=== PATIENT | male | born 1995 | race Caucasian/White ===

== ENCOUNTER 2023-09-07 18:16 | Emergency (ER) | payer OTHER, SELFPAY ==
[2023-09-07 18:18] VITALS: BP 149/85
[2023-09-07 19:24] VITALS: BMI 23.9
[2023-09-07 19:25] VITALS: BP 116/72
--- NOTE | 2023-09-07 21:00 | ED.GENMED ---
History of Present Illness
General
Chief Complaint: Withdrawal Symptoms
Source: patient
Exam Limitations: none
Time Seen by Provider: 09/07/23 19:10
Nursing documentation reviewed up to this point in time: agreed with
Travel History
Have you had any contact with someone who has COVID-19?: No
Do you have any symptoms of coronavirus? Fever > 100 degrees, chills, cough, shortness of breath, sore throat, loss of taste or smell, muscle aches, or headache?: No
History of Present Illness
History of Present Illness:
28-year-old male with a past medical history of anxiety depression, opioid abuse who presents to the emergency department requesting help refilling his Suboxone. Patient has been following for quite some time with [facility] for
management of his opioid addiction. He says he has been on Suboxone 8 mg twice a day for over a year. He says that he recently missed a follow-up appointment with the prescribing physician for his Suboxone and without being seen in person they do
not offer refills of Suboxone but instead will only treat with Subutex. He says that he has been taking Subutex while waiting for his follow-up appointment on September 19 at which time he hopes they will refill his Suboxone however he feels the Subutex
does not adequately manage his symptoms. He says that they recently increased his dose to 12 mg of Subutex twice a day and it still is not managing his withdrawal symptoms�he says he really only gets relief with Suboxone (he understands that the
Suboxone and Subutex are identical except for the naloxone but says that he consistently has better relief of symptoms with Suboxone). He says that he has not taken the Subutex for the past 2 days because he feels better not taking the Subutex. He
insist that he is not using opiates or any other drugs aside from medical marijuana which he is prescribed. He is hoping we can give him a refill on Suboxone until his appointment September 19. He complains of some general nausea and achiness but no
other significant withdrawal symptoms.
Past History
Past History
ED Past Medical History: Other (on Suboxone)
ED Past Surgical History: None
Social History
Tobacco: Non-smoker
Alcohol: Occasional
Drug: None
Personal: Single
Living: with family
Employment: Other
Family History
Family History: Other
Review of Systems
Review of Systems
All Other Systems: ROS reviewed and negative except as documented in HPI and ROS
Constitutional: Denies fever
EENT: Denies runny nose
Respiratory: Denies cough or trouble breathing
Cardiac: Denies chest pain or diaphoresis
ABD/GI: Reports nausea; Denies abdominal pain or vomiting
: Denies flank pain
Musculoskeletal: Reports muscle pain (Achiness); Denies neck pain or back pain
Neurological: Denies headache
Phy Exam
Physical Exam
Physical Exam:
General: Awake, alert, oriented x3
Head: Normocephalic, atraumatic
Eyes: Conjunctiva normal, pupils 4 mm and reactive to light bilaterally
Nose: No rhinorrhea
Throat: Airway intact, handling secretions
Neck: Trachea midline, supple without meningismus
Lungs: Clear to auscultation bilaterally, no wheezing, rales, rhonchi
Heart: Regular rate and rhythm, no murmurs, gallops, or rubs
Abd: Soft, non distended, nontender
Neuro: No gross deficits
Skin: no rash, no piloerection, skin slightly moist
Extremities: Warm and well-perfused
Scores
COW Clinical Opiate Withdrawal Scale
Resting Pulse Rate: 80 or below
Sweating-over past 30min not from room temp or activity: No report of chills or flushing
Restlessness-observation during assessment: Able to sit still
Pupil Size: Pupils pinned or normal size for room light
Bone or Joint Aches: Mild diffuse discomfort
Runny Nose or Tearing-not accounted for by cold/allergies: Not present
GI Upset-over last 30min: Nausea or loose stool
Tremor-observation of outstretched hands: No tremor
Yawning-observation during assessment: No yawning
Anxiety or Irritability: None
Gooseflesh Skin: Skin is smooth
Score: 3
Withdrawal Severity: Minimal Withdrawal
Heart Failure Risk
Heart Failure Risk Score: Not Applicable
Heart Score for Chest Pain Patients
STEMI patient?: Not applicable
Withdrawal Assessment of Alcohol
Withdrawal Assessment Completed?: Not applicable
Course
Orders/Labs/Results
Orders:
Orders
09/07/23 21:06
Drug Screen, Urine [Urine Drug Abuse Screen] Urgent
Date Specimen was Collected: 09/07/23
Time Specimen was Collected: 20:58
Fentanyl, Urine Urgent
Abnormal Lab Results
09/07/23
21:06
Ur Buprenorphine Positive H
(Negative)
U Marijuana (THC) Screen Positive H
(Negative)
Vital Signs
Initial and Last Documented VS:
Initial Vital Signs
Temp Pulse Resp BP Pulse Ox
37.5 C 72 20 149/85 97
09/07/23 18:18 09/07/23 18:18 09/07/23 18:18 09/07/23 18:18 09/07/23 18:18
Last Documented Vital Signs
Temp Pulse Resp BP Pulse Ox
37.5 C 65 18 116/72 98
09/07/23 18:18 09/07/23 19:25 09/07/23 19:25 09/07/23 19:25 09/07/23 19:25
MDM/Problems Addressed
Differential Diagnosis Includes:
Opioid withdrawal
MDM/Problems Addressed:
28-year-old male presents seeking help refilling his Suboxone�story as presented above. He follows with [facility] where he sees a provider who prescribes him Suboxone. He missed his appointment with the prescriber and they will not
refill the Suboxone until he is seen in person. They have been giving him Subutex in the meantime but he says it does not manage his symptoms well. Discussed case with MURIEL who were able to confirm patient's history, dosing as patient described.
Apparently they will not prescribe Suboxone without drug testing which can only be done in person. Patient will not undergo UDS here. Should be positive for buprenorphine and marijuana; if otherwise negative will prescribe him his usual Suboxone.
I did offer to treat him with higher doses Subutex here to see if it helps with his withdrawal symptoms but he declined, also offered adjunct medication such as clonidine or Zofran but patient declined.
UDS positive for buprenorphine and marijuana but otherwise negative. Will discharge on short course of Suboxone with plan to follow-up September 19 with his prescribing physician. Patient happy with this plan. All questions answered. We did provide
the patient Narcan in hand although he denies further opiate abuse.
Chronic conditions affecting care:
Opioid abuse
*Pulse Oximetry
Patient hypoxic: no
*Critical Care Note
Total Time (30-74mins, 75-104mins- exclusive of procedures): Not Applicable
Data Reviewed
Source: patient
Patient Management
Discussion with other providers: Other (Discussed with MURIEL)
ED Attending Note
-
Portions of this chart may have been created with voice recognition software.� Occasional wrong word or��sound alike� substitutions may have occurred due to the inherent limitations of voice recognition software.
Discharge Plan
Departure
Patient Disposition: Home (Routine Discharge)
Date of Disposition: 09/07/23
Time of Disposition: 21:48
Patient with high blood pressure during this ER visit?: No
Discharge Problem:
Medication refill
Instructions: Drug Misuse and Addiction (DC)
Prescriptions:
New
buprenorphine-naloxone [Suboxone] 8-2 mg film
1 film buccal BID 14 Days Qty: 28 0RF
Referrals:
UNKNOWN - PT DOES,NOT KNOW [Family Provider] -
Activity Restrictions/Additional Instructions:
Thank you for visiting the Emergency Department at [facility].
1. Please schedule a follow up appointment as directed. Call first thing tomorrow morning to make an appointment.
2. If indicated, please take your medications as instructed and indicated on discharge paperwork.
3. If any of your symptoms do not improve, or persist, or become more severe within 6-12 hours, please return to the emergency department for further care.
4. Please return to the emergency department if you develop a headache, neck pain/stiffness, fever greater than 100.4F, chest pain, shortness of breath, persistent nausea, vomiting, slurred speech, difficulty walking, numbness/tingling, weakness,
signs of infection or any other symptoms that are worrisome to you.
Please call [phone] if you have any questions.
Interventions
Interventions:
*Risk Screen - Suicide Last Done: 09/07/23 18:18
*General Assessment Last Done: 09/07/23 18:18
*Neglect/Abuse Screening Last Done: 09/07/23 18:18
ED- Neurological Assessment Last Done: 09/07/23 19:25
ED-Psychological Assessment Last Done: 09/07/23 19:25
Discharge Date and Time
Print Language: [id number]
[2023-09-07 21:27] LABS: Amphetamines Negative (Negative); Barbiturates Negative (Negative); Benzodiazepines Negative (Negative); Buprenorphine Positive (Negative); Cocaine Negative (Negative); Marijuana Positive (Negative); Methadone Negative (Negative); Methamphetamines Negative (Negative); Opiates Negative (Negative); Phencyclidine Negative (Negative); Tricyclic Antidepressants Negative (Negative)
[2023-09-07 21:40] LABS: Fentanyl, Urine Negative (Negative)
== END 2023-09-07 21:53 | disposition home or self-care (01) ==
LOC: EMR 18:16
PROVIDERS: EMERGENCY PHYSICIAN Emergency Medicine
DX: Z76.0 Encounter for issue of repeat prescription (principal); F41.9 Anxiety disorder, unspecified; F32.A Depression, unspecified; F11.10 Opioid abuse, uncomplicated
CPT/HCPCS: 99283; 80306; 80307